=== PATIENT | female | born 1940 | race Caucasian/White ===

== ENCOUNTER → 2020-06-10 | Outpatient (CLI) | payer MEDICARE, OTHER ==
[~2020-06-10] MED LIST: 0; ASPIRIN81 MG PO; AUGMENTIN 875-1 EACH PO; BREO ELLIPTA 11 EACH INH; COLACE100 MG PO; COREG12.5 MG PO; LEXAPRO TAB 1010 MG PO; LIPITOR40 MG PO; MULTIVITAMINS1 EAC1 PO; OXYGEN; PRINIVIL10 MG PO
== END ==
LOC: KOH-I 10:07
DX: R05 Cough (principal)
CPT/HCPCS: 71046

== ENCOUNTER → 2020-07-01 | Outpatient (CLI) | payer MEDICARE, OTHER | LOC: CT 06-23 09:30 | DX: R91.8 Other nonspecific abnormal finding of lung field (principal); R93.89 Abnormal findings on diagnostic imaging of other specified body structures | CPT/HCPCS: 36415; 71260; 82565; Q9967 ==

== ENCOUNTER 2021-06-07 10:10 | Emergency (ER) | payer MEDICARE, OTHER ==
[2021-06-07 11:41] LABS: HEMOGLOBIN 12.5 gm/dl (12.3-15.3); RED BLOOD COUNT 4.09 M/UL (4.00-5.10); WHITE BLOOD COUNT 9.4 K/UL (4.5-11.0)
[2021-06-07 12:28] LABS: BUN/CREATININE RATIO 18 (0-10)
== END 2021-06-07 16:00 | disposition home or self-care (01) ==
LOC: ER1 10:10
PROVIDERS: Emergency Medicine
DX: R53.1 Weakness (principal); I10 Essential (primary) hypertension; I25.2 Old myocardial infarction; E78.5 Hyperlipidemia, unspecified; Z20.822 Contact with and (suspected) exposure to COVID-19; Z86.69 Personal history of other diseases of the nervous system and sense organs; Z85.118 Personal history of other malignant neoplasm of bronchus and lung
CPT/HCPCS: 36600; 70450; 71045; 80053; 81001; 82550; 82553; 82803; 83874; 83880; 84484; 85025; 87040; 93005; 99285; U0002